=== PATIENT | female | born 1990 | race African-American/Black ===

== ENCOUNTER 2022-03-11 17:46 | Emergency (ER) | payer SELFPAY ==
[~2022-03-11] VITALS: Ht 160 cm; Wt 59.1 kg
[2022-03-11] MEDS ORDERED: PROM25SU10 PR (17:52)
[2022-03-11] MEDS ORDERED: SODIUM CHLORIDE 0.9% 1,000 ML IV ONE ×2 (18:15→20:00)
[2022-03-11] MEDS ORDERED: METOCLOPRAMIDE HCL 5 MG/ML 2 ML VIAL IVP ONE ×2 (18:15→18:30)
[2022-03-11] MEDS ORDERED: DiphenhydrAMINE HCL 50 MG/ML VIAL IVP ONE (18:30)
[2022-03-11 18:57] LABS: BASOPHILS % (AUTO) 0.5 % (0.0-2.0); EOSINOPHILS % (AUTO) 0.2 % (1.0-6.0); HEMOGLOBIN 14.6 g/dL (12.0-16.0); LYMPHOCYTES # (AUTO) 0.7 K/uL (1.0-4.8); LYMPHOCYTES % (AUTO) 8.8 % (22.0-44.0); MEAN CORPUSCULAR HEMOGLOBIN 26.6 pg (26.0-34.0); MEAN CORPUSCULAR HGB CONC 33.1 G/dL (31.0-37.0); MEAN CORPUSCULAR VOLUME 80 fL (80-100); MONOCYTES # (AUTO) 0.3 K/uL (0.1-1.0); MONOCYTES % (AUTO) 3.8 % (2.0-9.0); NEUTROPHILS # (AUTO) 6.8 K/uL (1.8-7.7); PLATELET COUNT (AUTO) 358 K/uL (150-450); RED BLOOD CELL COUNT(AUTO) 5.48 MIL/uL (4.00-5.20); RED CELL DISTRIBUTION WIDTH 16.3 % (11.5-14.5)
[2022-03-11 19:06] LABS: ANION GAP 14 mmol/L (8-16); CALCIUM, TOTAL 9.2 mg/dL (8.8-10.5); CARBON DIOXIDE 25 mmol/L (22-29); CHLORIDE 100 mmol/L (98-107); CREATININE 0.95 mg/dL (0.60-1.30); GLUCOSE,RANDOM 89 mg/dL (70-110); POTASSIUM 3.6 mmol/L (3.5-5.1); SODIUM SERUM 139 mmol/L (136-145); UREA NITROGEN, BLOOD 13 mg/dL (7-18)
[2022-03-11 19:08] LABS: GLOMERULAR FILTR. RATE CALC > 60 mL/min (>60)
[2022-03-11 19:09] LABS: NEUTROPHILS % (AUTO) 86.7 % (40.0-70.0)
[2022-03-11 19:11] LABS: ALANINE AMINOTRANSFERASE 27 U/L (12-78); ALBUMIN 4.8 g/dL (3.4-5.0); ALKALINE PHOSPHATASE 60 U/L (46-116); ASPARTATE AMINOTRANSFERASE 33 U/L (15-37); BILIRUBIN,TOTAL 0.7 mg/dL (0.1-1.0); TOTAL PROTEIN, SERUM 8.4 g/dL (6.4-8.2)
[2022-03-11] MEDS ORDERED: MORPHINE SULFATE 4 MG/ML SYRINGE IVP ONE ×2 (20:00→23:15)
[2022-03-11 23:00] VITALS: BP 141/72
[2022-03-11] MEDS ORDERED: ONDANSETRON HCL 4 MG/2 ML VIAL IVP ONE (23:15)
== END 2022-03-12 05:22 | disposition home or self-care (01) ==
LOC: EMS 17:54
DX: R11.15 Cyclical vomiting syndrome unrelated to migraine (principal); Z79.899 Other long term (current) drug therapy
CPT/HCPCS: 99284; 96374; 96375; 96361; 80053; 84703; 85025; 36415; 96376; J1200; J2765; J2270; J2405; J7030

== ENCOUNTER 2022-10-23 00:29 | Emergency (ER) | payer OTHER ==
[~2022-10-23] VITALS: Ht 160 cm; Wt 59.1 kg
[~2022-10-23 00:29] MED LIST: PROM25SU10 PR
[2022-10-23] MEDS ORDERED: HYDROmorphone HCL 2 MG/ML SYRINGE IVP ONE (01:15)
[2022-10-23] MEDS ORDERED: SODIUM CHLORIDE 0.9% 1,000 ML IV ONE (01:15)
[2022-10-23] MEDS ORDERED: ONDANSETRON HCL 4 MG/2 ML VIAL IVP ONE ×2 (01:15→02:15)
[2022-10-23 01:27] LABS: BASOPHILS % (AUTO) 0.2 % (0.0-2.0); EOSINOPHILS % (AUTO) 0.2 % (1.0-6.0); HEMATOCRIT 44.2 % (36-46); HEMOGLOBIN 14.7 g/dL (12.0-16.0); LYMPHOCYTES # (AUTO) 0.7 K/uL (1.0-4.8); LYMPHOCYTES % (AUTO) 8.3 % (22.0-44.0); MEAN CORPUSCULAR HGB CONC 33.2 G/dL (31.0-37.0); MEAN CORPUSCULAR VOLUME 81 fL (80-100); MONOCYTES # (AUTO) 0.2 K/uL (0.1-1.0); NEUTROPHILS # (AUTO) 7.6 K/uL (1.8-7.7); PLATELET COUNT (AUTO) 305 K/uL (150-450); RED BLOOD CELL COUNT(AUTO) 5.45 MIL/uL (4.00-5.20); RED CELL DISTRIBUTION WIDTH 15.5 % (11.5-14.5)
[2022-10-23 01:28] LABS: NEUTROPHILS % (AUTO) 89.3 % (40.0-70.0)
[2022-10-23 01:38] LABS: ANION GAP 12 mmol/L (8-16); CALCIUM, TOTAL 10.1 mg/dL (8.8-10.5); CARBON DIOXIDE 24 mmol/L (22-29); CHLORIDE 105 mmol/L (98-107); CREATININE 1.15 mg/dL (0.60-1.30); GLOMERULAR FILTR. RATE CALC > 60 mL/min (>60); GLUCOSE,RANDOM 127 mg/dL (70-110); POTASSIUM 4.1 mmol/L (3.5-5.1); SODIUM SERUM 141 mmol/L (136-145); UREA NITROGEN, BLOOD 12 mg/dL (7-18)
[2022-10-23 01:44] LABS: ALANINE AMINOTRANSFERASE 29 U/L (12-78); ALBUMIN 5.2 g/dL (3.4-5.0); ALKALINE PHOSPHATASE 58 U/L (46-116); ASPARTATE AMINOTRANSFERASE 43 U/L (15-37); BILIRUBIN,TOTAL 0.6 mg/dL (0.1-1.0); LIPASE 23 U/L (73-393); TOTAL PROTEIN, SERUM 8.8 g/dL (6.4-8.2)
[2022-10-23] MEDS ORDERED: LORazepam 2 MG/ML VIAL IVP ONE (02:15)
[2022-10-23 03:04] VITALS: BP 119/73
[2022-10-23] MEDS ORDERED: PANTOPRAZOLE SODIUM 40 MG/VIAL IVP ONE (03:15)
[2022-10-23] MEDS ORDERED: MORPHINE SULFATE 2 MG/ML SYRINGE IVP ONE (03:15)
[2022-10-24] MEDS ORDERED: ONDA-104 PO (14:38)
== END 2022-10-23 03:45 | disposition home or self-care (01) ==
LOC: EMS 00:29
DX: R11.15 Cyclical vomiting syndrome unrelated to migraine (principal); Z90.710 Acquired absence of both cervix and uterus
CPT/HCPCS: 99284; 96374; 96375; 96361; 80053; 83690; 84703; 85025; 96376; J1170; J2060; J2270; J2405; C9113; J7030; 36415-L1; 36415-TC

== ENCOUNTER 2022-10-24 09:12 | Emergency (ER) | payer OTHER ==
[~2022-10-24] VITALS: Ht 160 cm; Wt 59.1 kg
[2022-10-24 11:05] LABS: BASOPHILS % (AUTO) 0.3 % (0.0-2.0); EOSINOPHILS % (AUTO) 0.2 % (1.0-6.0); HEMATOCRIT 46.1 % (36-46); HEMOGLOBIN 15.4 g/dL (12.0-16.0); LYMPHOCYTES # (AUTO) 1.2 K/uL (1.0-4.8); LYMPHOCYTES % (AUTO) 18.1 % (22.0-44.0); MEAN CORPUSCULAR HEMOGLOBIN 27.2 pg (26.0-34.0); MEAN CORPUSCULAR HGB CONC 33.3 G/dL (31.0-37.0); MEAN CORPUSCULAR VOLUME 82 fL (80-100); MONOCYTES # (AUTO) 0.3 K/uL (0.1-1.0); MONOCYTES % (AUTO) 5.1 % (2.0-9.0); NEUTROPHILS # (AUTO) 5.2 K/uL (1.8-7.7); NEUTROPHILS % (AUTO) 76.3 % (40.0-70.0); PLATELET COUNT (AUTO) 294 K/uL (150-450); RED BLOOD CELL COUNT(AUTO) 5.66 MIL/uL (4.00-5.20); RED CELL DISTRIBUTION WIDTH 15.3 % (11.5-14.5)
[2022-10-24] MEDS ORDERED: METOCLOPRAMIDE HCL 5 MG/ML 2 ML VIAL IVP ONE ×2 (11:45→14:00)
[2022-10-24] MEDS ORDERED: SODIUM CHLORIDE 0.9% 1,000 ML IV ONE (11:45)
[2022-10-24 11:58] LABS: ANION GAP 12 mmol/L (8-16); CARBON DIOXIDE 23 mmol/L (22-29); CHLORIDE 103 mmol/L (98-107); CREATININE 0.91 mg/dL (0.60-1.30); GLOMERULAR FILTR. RATE CALC > 60 mL/min (>60); GLUCOSE,RANDOM 106 mg/dL (70-110); POTASSIUM 3.2 mmol/L (3.5-5.1); SODIUM SERUM 138 mmol/L (136-145); UREA NITROGEN, BLOOD 11 mg/dL (7-18)
[2022-10-24] MEDS ORDERED: HYDROmorphone HCL 2 MG/ML SYRINGE IM ONE (12:00)
[2022-10-24 12:03] LABS: ALANINE AMINOTRANSFERASE 29 U/L (12-78); ALBUMIN 4.5 g/dL (3.4-5.0); ALKALINE PHOSPHATASE 55 U/L (46-116); ASPARTATE AMINOTRANSFERASE 37 U/L (15-37); BILIRUBIN,TOTAL 0.4 mg/dL (0.1-1.0); LIPASE 37 U/L (73-393); TOTAL PROTEIN, SERUM 7.8 g/dL (6.4-8.2)
[2022-10-24 12:36] LABS: HCG,QUANTITATIVE < 1 mIU/mL (0-6)
[2022-10-24] MEDS ORDERED: PB/HYOSCY/ATR/SCOP/LIDO/MAALOX 55 ML BOTTLE PO ONE (14:00)
[2022-10-24] MEDS ORDERED: ONDA-104 PO (14:38)
[2022-10-24 15:00] VITALS: BP 121/72
== END 2022-10-24 15:18 | disposition home or self-care (01) ==
LOC: EMS 09:35
DX: R10.9 Unspecified abdominal pain (principal); R11.15 Cyclical vomiting syndrome unrelated to migraine; Z90.710 Acquired absence of both cervix and uterus
CPT/HCPCS: 99284; 96374; 96361; 80053; 83690; 84702; 85025; 36415; 96376; 96372; J1170; J2765; J7030

== ENCOUNTER 2023-03-14 21:42 | Emergency (ER) | payer OTHER ==
[~2023-03-14] VITALS: Ht 160 cm; Wt 63.6 kg
[~2023-03-14 21:42] MED LIST changes: +ONDA-104 PO; -PROM25SU10 PR
[2023-03-14] MEDS ORDERED: MORPHINE SULFATE 2 MG/ML SYRINGE IVP ONE (22:15)
[2023-03-14] MEDS ORDERED: ONDANSETRON HCL 4 MG/2 ML VIAL IVP ONE (22:15)
[2023-03-14] MEDS ORDERED: METOCLOPRAMIDE HCL 5 MG/ML 2 ML VIAL IVP ONE (22:15)
[2023-03-14] MEDS ORDERED: DiphenhydrAMINE HCL 50 MG/ML VIAL IVP ONE (22:15)
[2023-03-14] MEDS ORDERED: SODIUM CHLORIDE 0.9% 1,000 ML IV ONE ×2 (22:15→23:30)
[2023-03-14 23:03] LABS: BASOPHILS % (AUTO) 0.4 % (0.0-2.0); EOSINOPHILS % (AUTO) 0 % (1.0-6.0); HEMATOCRIT 51.4 % (36-46); HEMOGLOBIN 16.8 g/dL (12.0-16.0); LYMPHOCYTES # (AUTO) 1.9 K/uL (1.0-4.8); LYMPHOCYTES % (AUTO) 20.6 % (22.0-44.0); MEAN CORPUSCULAR HEMOGLOBIN 26.3 pg (26.0-34.0); MEAN CORPUSCULAR HGB CONC 32.6 G/dL (31.0-37.0); MEAN CORPUSCULAR VOLUME 81 fL (80-100); MONOCYTES # (AUTO) 0.8 K/uL (0.1-1.0); MONOCYTES % (AUTO) 8.4 % (2.0-9.0); NEUTROPHILS # (AUTO) 6.6 K/uL (1.8-7.7); NEUTROPHILS % (AUTO) 70.6 % (40.0-70.0); PLATELET COUNT (AUTO) 398 K/uL (150-450); RED BLOOD CELL COUNT(AUTO) 6.38 MIL/uL (4.00-5.20); RED CELL DISTRIBUTION WIDTH 15.8 % (11.5-14.5)
[2023-03-14 23:17] LABS: PHOSPHORUS 4.7 mg/dL (2.5-4.9)
[2023-03-14 23:27] LABS: ALANINE AMINOTRANSFERASE 19 U/L (12-78); ALBUMIN 5.6 g/dL (3.4-5.0); ALKALINE PHOSPHATASE 72 U/L (46-116); ANION GAP 23 mmol/L (8-16); ASPARTATE AMINOTRANSFERASE 23 U/L (15-37); BILIRUBIN,TOTAL 0.8 mg/dL (0.1-1.0); CALCIUM, TOTAL 10.5 mg/dL (8.8-10.5); CARBON DIOXIDE 22 mmol/L (22-29); CHLORIDE 91 mmol/L (98-107); CREATININE 2.09 mg/dL (0.60-1.30); GLOMERULAR FILTR. RATE CALC 33 mL/min (>60); GLUCOSE,RANDOM 131 mg/dL (70-110); HCG,QUANTITATIVE < 1 mIU/mL (0-6); LIPASE 25 U/L (16-77); SODIUM SERUM 136 mmol/L (136-145); TOTAL PROTEIN, SERUM 9.9 g/dL (6.4-8.2)
[2023-03-14 23:30] LABS: POTASSIUM 2.9 mmol/L (3.5-5.1)
[2023-03-14] MEDS ORDERED: POTASSIUM CHLORIDE 20 MEQ ER TABLET PO ONE (23:30)
[2023-03-14 23:47] VITALS: BP 147/92; PULSE 100; RESP 18
[2023-03-15] MEDS: PROMETHAZINE HCL 25 MG RECTAL SUPPOSITORY PR ONE ×2 (00:16→02:00)
[2023-03-15 02:10] LABS: APPEARANCE,URINE HAZY (CLEAR); BILIRUBIN,URINE NEGATIVE (NEGATIVE); GLUCOSE, URINE (UA) NEGATIVE (NEGATIVE); KETONES,URINE 40-60 mg/dL (NEGATIVE); LEUKOCYTE ESTERASE ,URINE NEGATIVE (NEGATIVE); NITRATE,URINE NEGATIVE (NEGATIVE); OCCULT BLOOD,URINE NEGATIVE (NEGATIVE); PH,URINE 5.5 (5.0-8.0); PROTEIN,URINE 100-200,SEE CONFIRM mg/dL (NEGATIVE); SPECIFIC GRAVITIY, URINE 1.023 (1.003-1.030); UROBILINOGEN,URINE <=1.0 mg/dL (<=1.0)
[2023-03-15 02:15] LABS: AMPHET/METH SCREEN,URINE NEGATIVE (NEGATIVE); BARBITURATE SCREEN, URINE NEGATIVE (NEGATIVE); BENZODIAZEPINES SCREEN,URINE POSITIVE (NEGATIVE); CANNABINOID SCREEN,URINE POSITIVE (NEGATIVE); COCAINE SCREEN,URINE NEGATIVE (NEGATIVE); METHADONE SCREEN, URINE NEGATIVE (NEGATIVE); OPIATE SCREEN,URINE POSITIVE (NEGATIVE); PHENCYCLIDINE SCREEN,URINE NEGATIVE (NEGATIVE)
[2023-03-15 02:29] LABS: BACTERIA,URINE None Seen /HPF (None Seen); RBC,URINE None Seen /HPF (0-2); SULFOSALICYLIC ACID,URINE 1+ (Negative); WBC,URINE None Seen /HPF (0-5)
[2023-03-15 02:30] LABS: AMORPHOUS SEDIMENT,UR Moderate /LPF (None Seen); SQUAMOUS EPITHELIAL CELL,UR Moderate /LPF (None Seen)
[2023-03-15 02:31] LABS: COARSE GRANULAR CASTS,URINE None Seen /LPF (None Seen)
== END 2023-03-15 03:45 | disposition short-term general hospital (02) ==
LOC: EMS 21:43
DX: R11.15 Cyclical vomiting syndrome unrelated to migraine (principal); E87.6 Hypokalemia; N17.9 Acute kidney failure, unspecified; F12.90 Cannabis use, unspecified, uncomplicated; Z90.710 Acquired absence of both cervix and uterus
CPT/HCPCS: 99285; 96374; 96375; 71045; 96361 ×2; 80053; 81001; 83605; 83690; 83735; 84100; 84484; 84702; 85025; 93005; 80307; 36415; J1200; J2765; J2270; J2405; J7030 ×2; G0480; 81002

== ENCOUNTER 2024-04-27 18:30 | Emergency (ER) | payer SELFPAY ==
[~2024-04-27] VITALS: Ht 160 cm; Wt 59.1 kg
[2024-04-27 18:33] VITALS: TEMP 98
[2024-04-27] MEDS: SODIUM CHLORIDE 0.9% 1,000 ML IV ONE (19:40)
[2024-04-27] MEDS: HYDROmorphone HCL 2 MG/ML SYRINGE IVP ONE (19:48)
[2024-04-27] MEDS: ONDANSETRON HCL 4 MG/2 ML VIAL IVP ONE (19:48)
[2024-04-27] MEDS: PROMETHAZINE HCL 25 MG RECTAL SUPPOSITORY PR ONE (20:06)
[2024-04-27 20:25] LABS: BASOPHILS % (AUTO) 0.2 % (0.0-2.0); EOSINOPHILS % (AUTO) 0.1 % (1.0-6.0); HEMATOCRIT 42.1 % (36-46); HEMOGLOBIN 13.5 g/dL (12.0-16.0); LYMPHOCYTES # (AUTO) 0.7 K/uL (1.0-4.8); LYMPHOCYTES % (AUTO) 7.2 % (22.0-44.0); MEAN CORPUSCULAR HEMOGLOBIN 26.3 pg (26.0-34.0); MEAN CORPUSCULAR VOLUME 82 fL (80-100); MONOCYTES # (AUTO) 0.3 K/uL (0.1-1.0); MONOCYTES % (AUTO) 3.1 % (2.0-9.0); NEUTROPHILS # (AUTO) 8.4 K/uL (1.8-7.7); NEUTROPHILS % (AUTO) 89.4 % (40.0-70.0); PLATELET COUNT (AUTO) 288 K/uL (150-450); RED BLOOD CELL COUNT(AUTO) 5.13 MIL/uL (4.00-5.20); RED CELL DISTRIBUTION WIDTH 15.7 % (11.5-14.5); WHITE BLOOD COUNT (AUTO) 9.4 K/uL (4.5-11.0)
[2024-04-27 20:38] LABS: PLATELET MORPHOLOGY COMMENT LARGE PLTS PRESENT
[2024-04-27 20:39] LABS: RBC MORPHOLOGY COMMENT NORMAL RBC MORPH
[2024-04-27 20:41] LABS: ANION GAP 17 mmol/L (8-16); CALCIUM, TOTAL 8.4 mg/dL (8.8-10.5); CARBON DIOXIDE 21 mmol/L (22-29); CHLORIDE 103 mmol/L (98-107); CREATININE 0.91 mg/dL (0.60-1.30); GLOMERULAR FILTR. RATE CALC > 60 mL/min (>60); GLUCOSE,RANDOM 87 mg/dL (70-110); POTASSIUM 3.5 mmol/L (3.5-5.1); SODIUM SERUM 141 mmol/L (136-145); UREA NITROGEN, BLOOD 14 mg/dL (7-18)
[2024-04-27 20:44] LABS: APPEARANCE,URINE CLEAR (CLEAR); BILIRUBIN,URINE NEGATIVE (NEGATIVE); COLOR,URINE LIGHT YELLOW (YELLOW); GLUCOSE, URINE (UA) NEGATIVE (NEGATIVE); KETONES,URINE =>150 mg/dL (NEGATIVE); LEUKOCYTE ESTERASE ,URINE NEGATIVE (NEGATIVE); NITRATE,URINE NEGATIVE (NEGATIVE); OCCULT BLOOD,URINE NEGATIVE (NEGATIVE); PROTEIN,URINE 30-70 mg/dL (NEGATIVE); SPECIFIC GRAVITIY, URINE 1.022 (1.003-1.030); UROBILINOGEN,URINE <=1.0 mg/dL (<=1.0)
[2024-04-27 20:45] LABS: ALANINE AMINOTRANSFERASE 34 U/L (12-78); ALBUMIN 4.2 g/dL (3.4-5.0); ALKALINE PHOSPHATASE 55 U/L (46-116); ASPARTATE AMINOTRANSFERASE 38 U/L (15-37); BILIRUBIN,TOTAL 0.7 mg/dL (0.1-1.0); LIPASE 13 U/L (16-77); TOTAL PROTEIN, SERUM 7.5 g/dL (6.4-8.2)
[2024-04-27] MEDS: PANTOPRAZOLE SODIUM 40 MG/VIAL IVP ONE (20:49)
[2024-04-27] MEDS ORDERED: PROM25TA7 PO (21:21)
[2024-04-27] MEDS ORDERED: FAMO20 PO (21:21)
[2024-04-27] MEDS ORDERED: LORA-1000 PO (21:21)
[2024-04-27] MEDS ORDERED: ONDA-104 PO (21:21)
[2024-04-28 00:04] VITALS: BP 142/95; PULSE 78; RESP 20; O2SAT 100
== END 2024-04-28 00:06 | disposition home or self-care (01) ==
LOC: EMS 18:32
DX: E86.0 Dehydration (principal); R11.15 Cyclical vomiting syndrome unrelated to migraine; F12.90 Cannabis use, unspecified, uncomplicated; Z90.710 Acquired absence of both cervix and uterus
CPT/HCPCS: 80048; 80076; 81003; 83690; 85025; 36415; 99284; 96361; 96374; 96375; J1170; J2405; C9113; J7030